=== PATIENT | male | born 1975 | race Hispanic/Latino ===

== ENCOUNTER 2023-05-08 05:41 | Observation (INO) | payer OTHER ==
[2023-05-08] MEDS ORDERED: fentaNYL 50 mcg/mL 1 mL Vial ONE ×3 (06:26→12:20)
[2023-05-08] MEDS ORDERED: Midazolam HCl 2 mg/2 ml Vial ONE (06:27)
[2023-05-08] MEDS ORDERED: Heparin 10,000 UNITS/ 10 ML VIAL ONE (06:27)
[2023-05-08] MEDS ORDERED: Atropine Sulfate 1 mg/10 ml Syringe ONE (07:21)
[2023-05-08] MEDS ORDERED: TICAGRELOR 90 MG TABLET ONE (08:54)
[2023-05-08] MEDS ORDERED: Nitroglycerin 50 MG/250 ML BOT 250 ML ONE (09:20)
[2023-05-08] MEDS ORDERED: Iopamidol 370 76% 100 ML VIAL ONE (13:54)
[2023-05-08 14:46] VITALS: BMI 29.7
[2023-05-08] MEDS ORDERED: FLU VACC QS2023-24(6MOS UP)/PF 60 MCG/0.5 ML SYRINGE IM ONE (15:15)
[2023-05-08] MEDS ORDERED: Sodium Chloride 0.9% 1,000 ML IV SCH ×2 (15:15)
[2023-05-08] MEDS ORDERED: TICAGRELOR 90 MG TABLET PO SCH (21:00)
[2023-05-08] MEDS ORDERED: Rosuvastatin 20 MG TAB PO SCH (21:00)
[2023-05-08] MEDS: TICAGRELOR 90 MG TABLET PO SCH (21:31)
[2023-05-09 04:36] LABS: #Monocytes 0.5 thou/uL (0.11-0.59); %Basophils 0.3 % (0.0-1.0); %Eosinophils 0.3 % (0.0-10.0); %Lymphocytes 34.5 % (21.0-51.0); %Neutrophils 50.6 % (42.0-75.0); Hematocrit 41.6 % (42.0-52.0); Hemoglobin 14.1 g/dL (14.0-18.0); Mean Corpuscular HGB CONC 33.9 g/dL (32.0-36.0); Mean Corpuscular Hemoglobin 30.9 pg (27.0-31.0); Mean Platelet Volume 9.1 fL (7.4-10.4); Platelet Count 138 10x3/uL (130-400); RBC Distribution Width 13.5 % (11.5-14.5); Red Blood Cell (RBC) Count 4.57 mill/uL (4.70-6.10); White Blood Cell (WBC) Count 3.9 10x3/uL (4.8-10.8)
[2023-05-09 04:59] LABS: ALT (SGPT) 24 U/L (8-55); AST (SGOT) 24 U/L (5-34); Albumin 3.6 g/dL (3.5-5.0); Alkaline Phosphatase 59 U/L (40-110); Anion Gap 10 mmol/L (10-20); BUN (Urea Nitrogen) 12 mg/dL (8.9-20.6); Bilirubin, Total 0.8 mg/dL (0.2-1.2); Calc. Creatinine Clearance 166 mL/min (70-130); Calcium 8.5 mg/dL (7.8-10.44); Carbon Dioxide 22 mmol/L (22-29); Chloride 107 mmol/L (98-107); Estimated GFR 110; Globulin 2.6 g/dL (2.4-3.5); Glucose 88 mg/dL (70-105); Potassium 4.1 mmol/L (3.5-5.1); Protein, Total 6.2 g/dL (6.0-8.3); Sodium 135 mmol/L (136-145)
[2023-05-09] MEDS ORDERED: Isosorbide Mononitrate 30 MG ER.TAB PO SCH (06:00)
[2023-05-09 08:51] VITALS: BP 125/69; TEMP 97.8
[2023-05-09] MEDS ORDERED: Aspirin 81 mg Enteric Coated Tablet PO SCH (09:00)
[2023-05-09] MEDS ORDERED: Aspirin Chewable 81 MG TAB PO SCH (09:00)
[2023-05-09] MEDS ORDERED: Amlodipine 5 MG TAB PO SCH (09:00)
[2023-05-09] MEDS: TICAGRELOR 90 MG TABLET PO SCH (09:00)
== END 2023-05-09 10:34 | disposition home or self-care (01) ==
LOC: SDC 05:41 → 2NO 09:24
PROVIDERS: ADMIT Internal Medicine Cardiovascular Disease; ATTEND Internal Medicine Cardiovascular Disease
PROC: 4A023N8 Measurement of Cardiac Sampling and Pressure, Bilateral, Percutaneous Approach (ICD-10-PCS; principal; 2023-05-08)
DX: I25.119 Atherosclerotic heart disease of native coronary artery with unspecified angina pectoris (principal); E78.00 Pure hypercholesterolemia, unspecified; G47.33 Obstructive sleep apnea (adult) (pediatric); G56.03 Carpal tunnel syndrome, bilateral upper limbs; F32.9 Major depressive disorder, single episode, unspecified; G43.109 Migraine with aura, not intractable, without status migrainosus; Z79.82 Long term (current) use of aspirin; Z79.899 Other long term (current) drug therapy
CPT/HCPCS: 36415; 80053; 85025; 85347; 92920; 93005; 93010; 93458; 99152; 99153; C1725; C1769; C1887; J0461; J1644; J2250; J3010; J7050; Q9967